=== PATIENT | female | born 1980 ===

== ENCOUNTER 2016-09-13 11:00 | Emergency (ER) | payer SELFPAY ==
[2016-09-13 11:05] VITALS: RESP 18; TEMP 97.8
[2016-09-13 11:06] VITALS: BMI 20.2
--- NOTE | 2016-09-13 11:46 | ED PDOC ---
HPI: Psych/Substance Abuse Time Seen by Provider: 09/13/16 11:34 Chief Complaint (Nursing): Psychiatric Evaluation Chief Complaint (Provider): crisis eval History Per: Patient Additional Complaint(s): Patient arrives with her family for crisis evaluation. Family states that patient sent text to family members that she wanted to harm herself. Patient states she never sent this type of text and she denies any suicidal or homicidal ideation upon arrival. Patient offers no medical complaints. Past Medical History Reviewed: Historical Data, Nursing Documentation, Vital Signs Vital Signs: Last Vital Signs Temp 97.8 F 09/13/16 11:03 Pulse 132 H 09/13/16 11:03 Resp 18 09/13/16 11:03 BP 167/127 H 09/13/16 11:03 Pulse Ox 99 09/13/16 11:03 - Medical History PMH: No Chronic Diseases - Surgical History Other surgeries: left arm fracture repair - Family History Family History: States: No Known Family Hx - Living Arrangements Living Arrangements: With Family - Social History Current smoker - smoking cessation education provided: Yes Alcohol: Social Drugs: Cannabis - Allergies Allergies/Adverse Reactions: Allergies Allergy/AdvReac Type Severity Reaction Status Date / Time No Known Allergies Allergy Verified 09/13/16 12:26 Review of Systems ROS Statement: Except As Marked, All Systems Reviewed And Found Negative Psych: Positive for: Suicidal ideation, Other (brought in by family for crisis eval) Physical Exam - Reviewed Nursing Documentation Reviewed: Yes Vital Signs Reviewed: Yes - Physical Exam Appears: Positive for: Well, Non-toxic, No Acute Distress Skin: Negative for: Rash Eye Exam: Positive for: Normal appearance Cardiovascular/Chest: Positive for: Regular Rate, Rhythm Respiratory: Positive for: Normal Breath Sounds Neurologic/Psych: Positive for: Alert, Oriented, Mood/Affect (anxious) - ECG O2 Sat by Pulse Oximetry: 99 Pulse Ox Interpretation: Normal Medical Decision Making Medical Decision Makin35 year old here for crisis eval Plan: Crisis consult As per crisis counselor and psychiatrist money manager, Dr. Isbell, patient does not meet criteria for admission and is stable for discharge. Patient was given referral for outpatient follow up. Repeat BP: 139/70 Disposition - Clinical Impression Clinical Impression: Bipolar disorder - Patient ED Disposition Is Patient to be Admitted: No Counseled Patient/Family Regarding: Diagnosis, Need For Followup - Disposition Referrals: [facility] [Outside] Disposition: Routine/Home Disposition Time: 12:31 Condition: STABLE Additional Instructions: Follow up as directed. Instructions: Bipolar Disorder (ED) Forms: [employer] (Turkish)
[2016-09-13 12:52] VITALS: BP 139/70; PULSE 90; O2SAT 100
== END 2016-09-13 13:00 | disposition home or self-care (01) ==
LOC: H.ER 11:00
DX: F31.9 Bipolar disorder, unspecified (principal); Z00.8 Encounter for other general examination; F17.200 Nicotine dependence, unspecified, uncomplicated